=== PATIENT | male | born 1970 | race Caucasian/White ===

== ENCOUNTER 2023-01-16 15:41 | Emergency (ER) | payer BC, SELFPAY ==
[2023-01-16 15:46] VITALS: BP 143/91; PULSE 87; RESP 16; TEMP 37.3; O2SAT 98; BMI 25.7
--- NOTE | 2023-01-16 16:18 | W.ED.BACK ---
Documented by User: Matt Mustafa DO 01/16/23 17:27 HPI - Back Pain/Injury General: Chief Complaint: Back Pain/Injury Stated Complaint: low back pain Time Seen by Provider: 01/16/23 15:42 History of Present Illness: Patient presents to the ER with complaints of right-sided flank pain started hurting last night about 2 hours after he ate dinner. Patient says been constant then. Patient does not know anything he done yesterday that may have set it off or triggered it other than eating. Patient denies that it radiates down to his groin. Patient denies overt frequency urgency or hematuria. Patient has never had this pain before. Review of Systems General: Reports: 10 or more systems reviewed and unremarkable except in HPI and below Physical Exam Const: COMMON NORMALS: no acute distress, average body habitus, patient oriented x3, no limitations, healthy appearing, alert and well nourished HENMT: COMMON NORMALS: normocephalic, atraumatic, hearing grossly normal bilaterally, external ears normal, Normal external nose present and moist oral mucous membranes HEAD & SCALP: normocephalic and atraumatic NOSE: Normal external nose present EXTERNAL EAR: Yes external ears normal Eye: COMMON NORMALS: Equal, round and reactive pupils present, EOMs intact bilaterally, conjunctivae normal and no scleral icterus CONJUNCTIVA: Yes conjunctivae normal PUPIL: Yes Equal, round and reactive pupils present Neck/C-Spine: COMMON NORMALS: full ROM, no lymphadenopathy, supple, no meningeal signs, no JVD and Thyroid normal THYROID: Thyroid normal Lymph: LYMPHATIC: no lymphadenopathy noted and no lymphedema noted Chest: COMMONS NORMALS: normal inspection of the chest and normal palpation of entire chest wall Resp: COMMON NORMALS: normal respiratory effort, No retractions, No use of accessory muscles and clear to auscultation bilaterally AUSCULTATION: clear to auscultation bilaterally Cardio: COMMON NORMALS: no JVD, regular rate, regular rhythm, S1 normal heart sound present, S2 normal heart sound present, No gallops present (Cardio), No clicks present (Cardio), No murmurs present (Cardio) and No rub (Cardio) RATE: regular rate RHYTHM: regular rhythm HEART SOUNDS: S1 normal heart sound present and S2 normal heart sound present GI: COMMON NORMALS: Normal to inspection, nondistended, normoactive bowel sounds present, Soft to palpation, non-tender, No hepatosplenomegaly present, no masses and no bruits PALPATION: Yes Soft to palpation and Yes No hepatosplenomegaly present : COMMON NORMALS: No no CVA tenderness (Mild right CVA tenderness and right flank pain. No tenderness over spinal ) BLADDER/KIDNEY EXAM: No no CVA tenderness (Mild right CVA tenderness and right flank pain. No tenderness over spinal ) Back/Pelvis: COMMON NORMALS: negative for no CVA tenderness (Mild right CVA tenderness and right flank pain. No tenderness over spinal ) Neuro: COMMON NORMALS: patient oriented x3 SENSORIUM/ORIENTATION: Yes alert MENINGEAL SIGNS: Yes no meningeal signs Course Vital Signs: Vital signs: Vital Signs Temperature 99.1 F 01/16/23 15:46 Pulse Rate 87 01/16/23 15:46 Respiratory Rate 16 01/16/23 15:46 Blood Pressure 143/91 01/16/23 15:46 Pulse Oximetry 98 01/16/23 15:46 MDM - Back Pain/Injury Differential Diagnosis Unlikely lumbar radiculopathy, sciatica, strain of lumbar region, renal colic, pyelonephritis, thoracic back pain, AAA or discitis Medical Records I reviewed the patient's medical records. Labs I reviewed the patient's lab results. 01/16/23 17:13 01/16/23 17:13 Laboratory Results WBC 11.33 10^3/uL (3.29-11.43) 01/16/23 17:13 RBC 3.93 10^6/uL (3.85-5.65) 01/16/23 17:13 Hgb 13.10 g/dL (11.27-16.99) 01/16/23 17:13 Hct 37.8 % (37-53) 01/16/23 17:13 MCV 96.2 fl (82-101) 01/16/23 17:13 MCH 33.3 pg (27-33) H 01/16/23 17:13 MCHC 34.7 g/dL (30-55) 01/16/23 17:13 RDW 11.9 % (12.1-15.1) L 01/16/23 17:13 Plt Count 404 10^3/cmm (157-399) H 01/16/23 17:13 MPV 8.1 fL (7.4-10.4) 01/16/23 17:13 Neut % (Auto) 62.7 % 01/16/23 17:13 Lymph % (Auto) 17.8 % 01/16/23 17:13 [place] % (Auto) 13.6 % 01/16/23 17:13 Eos % (Auto) 4.6 % 01/16/23 17:13 Baso % (Auto) 0.9 % 01/16/23 17:13 Neut # (Auto) 7.11 10^3/uL (1.8-7.7) 01/16/23 17:13 Lymph # (Auto) 2.0 10^3/uL (0.8-4.8) 01/16/23 17:13 [place] # (Auto) 1.5 10^3/uL (0.2-0.9) H 01/16/23 17:13 Eos # (Auto) 0.5 10^3/uL (0.0-0.8) 01/16/23 17:13 Baso # (Auto) 0.1 10^3/uL (0.0-0.1) 01/16/23 17:13 Nucleated RBC % (auto) 0 % 01/16/23 17:13 Nucleated RBCs # 0.0 /100WBC 01/16/23 17:13 Sodium 139 mmol/L (136-145) 01/16/23 17:13 Potassium 3.8 mmol/L (3.5-5.1) 01/16/23 17:13 Chloride 100 mmol/L (98-107) 01/16/23 17:13 Carbon Dioxide 28 mmol/L (22-29) 01/16/23 17:13 Anion Gap 14.8 (5-19) 01/16/23 17:13 BUN 18 mg/dL (6-20) 01/16/23 17:13 Creatinine 1.0 mg/dL (0.7-1.2) 01/16/23 17:13 GFR Calculation 78.8 mL/min (90-130) L 01/16/23 17:13 Glucose 85 mg/dL (65-115) 01/16/23 17:13 Calculated Osmolality 289 mOsm/kg (285-295) 01/16/23 17:13 Calcium 8.8 mg/dL (8.5-10.5) 01/16/23 17:13 Total Bilirubin 0.7 mg/dL (0.15-1.2) 01/16/23 17:13 AST 16 U/L (0-40) 01/16/23 17:13 ALT 8 U/L (0-41) 01/16/23 17:13 Alkaline Phosphatase 91 U/L (40-130) 01/16/23 17:13 Total Protein 6.9 g/dL (6.6-8.7) 01/16/23 17:13 Albumin 3.9 g/dL (3.5-5.2) 01/16/23 17:13 Globulin 3.0 g/dL (1.3-4.6) 01/16/23 17:13 Urine Color Dark yellow (Yellow) 01/16/23 17:58 Urine Appearance Sl hazy (CLEAR) A 01/16/23 17:58 Urine pH 6 (5-7) 01/16/23 17:58 Ur Specific [place] 1.020 (1.005-1.030) 01/16/23 17:58 Urine Protein Neg (Negative) 01/16/23 17:58 Urine Glucose (UA) Norm (Normal) 01/16/23 17:58 Urine Ketones 1+ (Negative) H 01/16/23 17:58 Urine Blood 2+ (Negative) H 01/16/23 17:58 Urine Nitrate Negative (Negative) 01/16/23 17:58 Urine Bilirubin Neg (Negative) 01/16/23 17:58 Urine Urobilinogen 4 mg/dL (Negative) H 01/16/23 17:58 Ur Leukocyte Esterase Negative (Negative) 01/16/23 17:58 Urine RBC 25-40 /hpf (0-2) H 01/16/23 17:58 Urine WBC 0-4 /hpf (0-5) H 01/16/23 17:58 Ur Squamous Epith Cells 0-4 /hpf (0-5) H 01/16/23 17:58 Calcium Oxalate Crystal 0-4 /hpf H 01/16/23 17:58 Amorphous Sediment Not Reportable 01/16/23 17:58 Urine Bacteria Trace /hpf (NONE) 01/16/23 17:58 Urine Mucus 2+ /hpf 01/16/23 17:58 Discharge Plan Discharge Patient Disposition: Home Clinical Impression: Low back pain Condition: Stable Prescriptions: New methocarbamol 750 mg tablet 750 mg PO Q6H PRN (Reason: spasms) Qty: 20 0RF naproxen [Naprosyn] 500 mg tablet 500 mg PO BID PRN (Reason: pain) Qty: 20 0RF Discharge Orders: Discharge ED (Routine); Ordered 01/16/23 Ordered By: Natalie Lora Discharge Diet: Advance as tolerated Discharge Activity: Resume usual activity Patient Instructions: Acute Low Back Pain (ED) Coding Level of Care Code ED Chief Sustainability Officer for [facility] Documented by User: Natalie Lora MD 01/16/23 18:53 HPI - Back Pain/Injury General: Chief Complaint: Back Pain/Injury Stated Complaint: low back pain Time Seen by Provider: 01/16/23 15:42 Course Vital Signs: Vital signs: Vital Signs Temperature 99.1 F 01/16/23 15:46 Pulse Rate 87 01/16/23 15:46 Respiratory Rate 16 01/16/23 15:46 Blood Pressure 143/91 01/16/23 15:46 Pulse Oximetry 98 01/16/23 15:46 MDM - Back Pain/Injury Medical Decision Making Patient presents here with back pains likely muscular in nature did repeat exam he is point tenderness to right lower back he has no CVA tenderness no testicle pain his pain has improved here we will place him on Naprosyn and Robaxin he does have some hematuria here no signs of a cystitis we will get him follow-up with urology he is return if worsening he understands agrees to plan. Labs 01/16/23 17:13 01/16/23 17:13 Laboratory Results WBC 11.33 10^3/uL (3.29-11.43) 01/16/23 17:13 RBC 3.93 10^6/uL (3.85-5.65) 01/16/23 17:13 Hgb 13.10 g/dL (11.27-16.99) 01/16/23 17:13 Hct 37.8 % (37-53) 01/16/23 17:13 MCV 96.2 fl (82-101) 01/16/23 17:13 MCH 33.3 pg (27-33) H 01/16/23 17:13 MCHC 34.7 g/dL (30-55) 01/16/23 17:13 RDW 11.9 % (12.1-15.1) L 01/16/23 17:13 Plt Count 404 10^3/cmm (157-399) H 01/16/23 17:13 MPV 8.1 fL (7.4-10.4) 01/16/23 17:13 Neut % (Auto) 62.7 % 01/16/23 17:13 Lymph % (Auto) 17.8 % 01/16/23 17:13 [place] % (Auto) 13.6 % 01/16/23 17:13 Eos % (Auto) 4.6 % 01/16/23 17:13 Baso % (Auto) 0.9 % 01/16/23 17:13 Neut # (Auto) 7.11 10^3/uL (1.8-7.7) 01/16/23 17:13 Lymph # (Auto) 2.0 10^3/uL (0.8-4.8) 01/16/23 17:13 [place] # (Auto) 1.5 10^3/uL (0.2-0.9) H 01/16/23 17:13 Eos # (Auto) 0.5 10^3/uL (0.0-0.8) 01/16/23 17:13 Baso # (Auto) 0.1 10^3/uL (0.0-0.1) 01/16/23 17:13 Nucleated RBC % (auto) 0 % 01/16/23 17:13 Nucleated RBCs # 0.0 /100WBC 01/16/23 17:13 Sodium 139 mmol/L (136-145) 01/16/23 17:13 Potassium 3.8 mmol/L (3.5-5.1) 01/16/23 17:13 Chloride 100 mmol/L (98-107) 01/16/23 17:13 Carbon Dioxide 28 mmol/L (22-29) 01/16/23 17:13 Anion Gap 14.8 (5-19) 01/16/23 17:13 BUN 18 mg/dL (6-20) 01/16/23 17:13 Creatinine 1.0 mg/dL (0.7-1.2) 01/16/23 17:13 GFR Calculation 78.8 mL/min (90-130) L 01/16/23 17:13 Glucose 85 mg/dL (65-115) 01/16/23 17:13 Calculated Osmolality 289 mOsm/kg (285-295) 01/16/23 17:13 Calcium 8.8 mg/dL (8.5-10.5) 01/16/23 17:13 Total Bilirubin 0.7 mg/dL (0.15-1.2) 01/16/23 17:13 AST 16 U/L (0-40) 01/16/23 17:13 ALT 8 U/L (0-41) 01/16/23 17:13 Alkaline Phosphatase 91 U/L (40-130) 01/16/23 17:13 Total Protein 6.9 g/dL (6.6-8.7) 01/16/23 17:13 Albumin 3.9 g/dL (3.5-5.2) 01/16/23 17:13 Globulin 3.0 g/dL (1.3-4.6) 01/16/23 17:13 Urine Color Dark yellow (Yellow) 01/16/23 17:58 Urine Appearance Sl hazy (CLEAR) A 01/16/23 17:58 Urine pH 6 (5-7) 01/16/23 17:58 Ur Specific [place] 1.020 (1.005-1.030) 01/16/23 17:58 Urine Protein Neg (Negative) 01/16/23 17:58 Urine Glucose (UA) Norm (Normal) 01/16/23 17:58 Urine Ketones 1+ (Negative) H 01/16/23 17:58 Urine Blood 2+ (Negative) H 01/16/23 17:58 Urine Nitrate Negative (Negative) 01/16/23 17:58 Urine Bilirubin Neg (Negative) 01/16/23 17:58 Urine Urobilinogen 4 mg/dL (Negative) H 01/16/23 17:58 Ur Leukocyte Esterase Negative (Negative) 01/16/23 17:58 Urine RBC 25-40 /hpf (0-2) H 01/16/23 17:58 Urine WBC 0-4 /hpf (0-5) H 01/16/23 17:58 Ur Squamous Epith Cells 0-4 /hpf (0-5) H 01/16/23 17:58 Calcium Oxalate Crystal 0-4 /hpf H 01/16/23 17:58 Amorphous Sediment Not Reportable 01/16/23 17:58 Urine Bacteria Trace /hpf (NONE) 01/16/23 17:58 Urine Mucus 2+ /hpf 01/16/23 17:58 Discharge Plan Discharge Patient Disposition: Home Clinical Impression: Low back pain Condition: Stable Prescriptions: New methocarbamol 750 mg tablet 750 mg PO Q6H PRN (Reason: spasms) Qty: 20 0RF naproxen [Naprosyn] 500 mg tablet 500 mg PO BID PRN (Reason: pain) Qty: 20 0RF Discharge Orders: Discharge ED (Routine); Ordered 01/16/23 Ordered By: Natalie Lora Discharge Diet: Advance as tolerated Discharge Activity: Resume usual activity Patient Instructions: Acute Low Back Pain (ED) Coding Level of Care Code ED Chief Sustainability Officer for [facility]
[2023-01-16 17:26] LABS: Basophils # 0.1 10^3/uL (0.0-0.1); Basophils % 0.9 %; Eosinophils # 0.5 10^3/uL (0.0-0.8); Eosinophils % 4.6 %; Hematocrit 37.8 % (37-53); Lymphocytes % 17.8 %; Mean Corpuscular HGB Conc 34.7 g/dL (30-55); Mean Corpuscular Hemoglobin 33.3 pg (27-33); Mean Corpuscular Volume 96.2 fl (82-101); Mean Platelet Volume 8.1 fL (7.4-10.4); Monocytes # 1.5 10^3/uL (0.2-0.9); Monocytes % 13.6 %; Neutrophils # 7.11 10^3/uL (1.8-7.7); Neutrophils % 62.7 %; Nucleated Red Blood Cells % 0 %; Platelet Count 404 10^3/cmm (157-399); Red Blood Count 3.93 10^6/uL (3.85-5.65); Red Cell Distribution Width 11.9 % (12.1-15.1); White Blood Count 11.33 10^3/uL (3.29-11.43)
[2023-01-16 17:43] LABS: Alanine Aminotransferase 8 U/L (0-41); Albumin Level 3.9 g/dL (3.5-5.2); Alkaline Phosphatase 91 U/L (40-130); Anion Gap 14.8 (5-19); Aspartate Amino Transferase 16 U/L (0-40); Blood Urea Nitrogen 18 mg/dL (6-20); Calcium 8.8 mg/dL (8.5-10.5); Carbon Dioxide 28 mmol/L (22-29); Chloride 100 mmol/L (98-107); Glomerular Filtration Rate 78.8 mL/min (90-130); Glucose 85 mg/dL (65-115); Osmolality Calculated 289 mOsm/kg (285-295); Potassium 3.8 mmol/L (3.5-5.1); Sodium 139 mmol/L (136-145); Total Bilirubin 0.7 mg/dL (0.15-1.2); Total Protein 6.9 g/dL (6.6-8.7)
[2023-01-16 18:46] LABS: Urine Appearance SL Hazy (CLEAR); Urine Color Dark Yellow (Yellow); pH Urine 6 (5-7)
[2023-01-16 18:47] LABS: Add Urine Microscopic? YES; Bacteria Urine TRACE /hpf; Bilirubin Urine Neg (Negative); Blood Urine 2+ (Negative); Calcium Oxalate Crystals Urine 0-4 /hpf; Glucose Urine UA Norm (Normal); Ketones Urine 1+ (Negative); Leukocyte Esterase Urine Negative (Negative); Mucus Urine 2+ /hpf; Nitrate Urine Negative (Negative); Protein Urine Neg (Negative); RBC Urine 25-40 /hpf (0-2); Squamous Epithelial Cell Urine 0-4 /hpf (0-5); Urobilinogen Urine 4 mg/dL (Negative); WBC Urine 0-4 /hpf (0-5)
[2023-01-16 18:48] LABS: Add Urine Culture? Yes
[2023-01-16] MEDS: ketorolac 60 mg/2 mL INJ IM (19:23)
[2023-01-16 19:41] VITALS: PULSE 80; RESP 16; O2SAT 96
--- NOTE | 2023-01-17 09:31 | DCPLANNER ---
Addendum entered by Chica Goyal 01/25/23 14:43: human relations manager called [facility] urology to confirm that clinic had received patients information. human relations manager was told that clinic had received patients information, it will be reviewed and clinic will contact patient with appointment information. Original Note: human relations manager had message to schedule a follow up appointment for patient with urology. human relations manager spoke with patient to confirm where he wanted referral sent, patient stated that he would like it sent to [facility]. human relations manager faxed patients information to [facility], where it will be reviewed, clinic will call patient with appointment information.
== END 2023-01-16 19:40 | disposition home or self-care (01) ==
PROVIDERS: Emergency Medicine; Emergency Provider Emergency Medicine
DX: M54.50 Low back pain, unspecified (principal)
CPT/HCPCS: 36415; 80053; 81001; 85025; 87086; 96372; 99284; J1885